=== PATIENT | female | born 1980 ===

== ENCOUNTER 2022-01-31 21:33 | Emergency (ER) | payer OTHER ==
[~2022-01-31] VITALS: Ht 154.9 cm; Wt 60.8 kg
[2022-01-31] MEDS ORDERED: PEPCID20 MG PO (21:44)
[2022-01-31] MEDS ORDERED: CHILDREN'S ASPI81 MG PO (21:44)
[2022-01-31] MEDS ORDERED: PRENA1 CHEW TA1.4 MG PO (21:44)
== END 2022-02-01 03:18 ==
LOC: ER 21:33
DX: O46.92 Antepartum hemorrhage, unspecified, second trimester (principal); Z3A.22 22 weeks gestation of pregnancy

== ENCOUNTER 2022-06-24 06:26 | Inpatient (IN) | payer OTHER ==
[~2022-06-24] VITALS: Ht 157.5 cm; Wt 69.9 kg
[~2022-06-24 06:26] MED LIST: CHILDREN'S ASPI81 MG PO; PEPCID20 MG PO; PRENA1 CHEW TA1.4 MG PO
[2022-06-24] MEDS ORDERED: BAYER CHEWABLE81 MG PO (09:12)
[2022-06-26] MEDS ORDERED: LABETALOL HCL100 MG PO (14:00)
== END 2022-06-26 18:49 | disposition home or self-care (01) | DRG 807 ==
LOC: LDR 06:26 → OB/GYN 06-25 14:28
PROVIDERS: ADMIT Obstetrics & Gynecology; ATTEND Obstetrics & Gynecology
PROC: 10E0XZZ Delivery of Products of Conception, External Approach (ICD-10-PCS; principal; 2022-06-24)
PROC: 0W8NXZZ Division of Female Perineum, External Approach (ICD-10-PCS; 2022-06-24)
PROC: 4A1HXCZ Monitoring of Products of Conception, Cardiac Rate, External Approach (ICD-10-PCS; 2022-06-24)
DX: O80 Encounter for full-term uncomplicated delivery (principal); Z37.0 Single live birth; Z3A.38 38 weeks gestation of pregnancy; Z20.822 Contact with and (suspected) exposure to COVID-19

== ENCOUNTER 2024-02-16 06:30 | Day surgery (SDC) | payer OTHER ==
[2024-02-15 10:09] VITALS: BP 130/84
[~2024-02-16] VITALS: Ht 157.5 cm; Wt 66.2 kg
[~2024-02-16 06:30] MED LIST changes: +BAYER CHEWABLE81 MG PO; +LABETALOL HCL100 MG PO
[2024-02-16] MEDS ORDERED: NAPR500T14 PO (16:22)
[2024-02-16] MEDS ORDERED: MONDOXYNE NL100 MG PO (16:22)
[2024-02-16] MEDS ORDERED: Tylenol #3 PO (16:25)
[2024-02-16] MEDS ORDERED: PROMETHAZINE HCL 50 MG/ML AMPUL IM ONE (16:30)
[2024-02-16] MEDS ORDERED: MORPHINE SULFATE 4 MG/ML VIAL IV PRN (16:30)
[2024-02-16] MEDS ORDERED: CEFOXITIN SODIUM 2,000 MG VIAL IV ONE (17:15)
[2024-02-16] MEDS ORDERED: POVIDONE-IODINE 118 ML BOTT TOP ONE (17:15)
== END 2024-02-16 19:50 | disposition home or self-care (01) ==
LOC: CIR.AMB 06:30 → U 07:00 → CIR.AMB 07:00
PROVIDERS: ATTEND Obstetrics & Gynecology
DX: Z30.2 Encounter for sterilization (principal)